=== PATIENT | male | born 1955 | race Caucasian/White ===

== ENCOUNTER 2021-09-14 12:56 | Emergency (ER) | payer OTHER ==
[2021-09-14] MEDS ORDERED: traMADol 50 MG Tab PO ONE (14:07)
[2021-09-14] MEDS ORDERED: Cyclobenzaprine 10 MG Tab PO ONE (14:07)
== END 2021-09-14 17:01 | disposition home or self-care (01) ==
LOC: KA.ED 12:56
DX: S06.0X0A Concussion without loss of consciousness, initial encounter (principal); S39.012A Strain of muscle, fascia and tendon of lower back, initial encounter; S00.03XA Contusion of scalp, initial encounter; Z79.82 Long term (current) use of aspirin; Z79.899 Other long term (current) drug therapy; W01.0XXA Fall on same level from slipping, tripping and stumbling without subsequent striking against object, initial encounter
CPT/HCPCS: 70450; 72100; 72125; 99283; 99284-25; A9270-GY